=== PATIENT | male | born 1985 | race Caucasian/White ===

== ENCOUNTER 2017-04-28 15:19 | Outpatient (CLI) | payer OTHER ==
--- NOTE | 2017-04-29 08:40 | MRI Preliminary Report ---
Exam: MRI KNEE RT W/O IMPRESSION: 1. Near complete to complete rupture anterior cruciate ligament. 2. Radial tear through the substance posterior horn medial meniscus. 3. Bone contusions versus subacute subtle impaction fractures lateral femoral condyle and lateral tib ial plateau. 4. Small joint effusion. 5. Minimal popliteal cyst with leak. [facility] SECTION SITE ID: [id number]
--- NOTE | 2017-04-29 09:24 | MRI Report ---
EXAM: RIGHT KNEE MRI WITHOUT CONTRAST EXAM DATE: 04/28/2017 04:45 PM. CLINICAL HISTORY: Pain in right knee. COMPARISON: None. TECHNIQUE: Multiplanar, multisequence T1-weighted and fluid-sensitive sequences of the knee without c ontrast. Other: None. FINDINGS: Bones: No fracture. Benign bone island in the lateral femoral condyle. Subtle reactive edema at the m edial compartment. Subtle edema in the anterior aspect lateral femoral condyle and posterior aspect l ateral tibial plateau adjacent to the proximal tib-fib joint. Articular Cartilage: Focal deep partial to full-thickness fissure/tear weightbearing surface lateral femoral condyle. Shallow partial-thickness fissuring/tearing medial patellar facet. Medial Meniscus: Radial tear through the central substance of the posterior horn. Tearing extends int o the junction with the posterior root. Lateral Meniscus: The lateral meniscus is intact. Cruciate Ligaments: Diffuse distortion at the mid to distal fibers anterior cruciate ligament. A 1.5 cm ovoid focus of torn fibers present in the anterior aspect of the intercondylar notch. A few fibers of the posterior lateral band may remain intact. Posterior cruciate ligament is intact. Collateral Ligaments: The medial collateral and lateral collateral ligamentous structures are intact. Tendons: The quadriceps, patellar, semimembranosus, and popliteus tendons are unremarkable. Musculature: No edema or fatty atrophy. Other: Small joint effusion. Mild thickening of the medial plica. Minimal popliteal cyst with leak. N o loose bodies. The medial and lateral retinacula are intact. Subcutaneous soft tissues are unremarka ble. Minimal reactive edema in the fat pads. IMPRESSION: 1. Near complete to complete rupture anterior cruciate ligament. 2. Radial tear through the substance posterior horn medial meniscus. 3. Bone contusions versus subacute subtle impaction fractures lateral femoral condyle and lateral tib ial plateau. 4. Small joint effusion. 5. Minimal popliteal cyst with leak. [facility] SECTION Referring Provider Line: [phone] SITE ID: [id number]
== END 2017-04-28 15:20 | disposition home or self-care (01) ==
LOC: DI 15:19
PROVIDERS: ATTEND Orthopaedic Surgery
DX: S83.511A Sprain of anterior cruciate ligament of right knee, initial encounter (principal); S83.241A Other tear of medial meniscus, current injury, right knee, initial encounter; M25.461 Effusion, right knee; M71.21 Synovial cyst of popliteal space [Baker], right knee

== ENCOUNTER 2017-08-31 18:52 | Outpatient (CLI) | payer OTHER | END 2017-08-31 18:53 | disposition critical access hospital (66) | LOC: EMS 18:52 | PROVIDERS: ATTEND Surgery | DX: T20.19XA Burn of first degree of multiple sites of head, face, and neck, initial encounter (principal); X04.XXXA Exposure to ignition of highly flammable material, initial encounter; Y92.009 Unspecified place in unspecified non-institutional (private) residence as the place of occurrence of the external cause | CPT/HCPCS: A0425; A0429 ==

== ENCOUNTER 2017-08-31 19:39 | Emergency (ER) | payer OTHER ==
[2017-08-31] MEDS ORDERED: KETOROLAC 60 MG/2 ML VIAL IVP STA (19:55)
[2017-08-31] MEDS ORDERED: MORPHINE 10 MG/ML VIAL IVP STA (19:55)
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
[2017-08-31 20:30] VITALS: BP 119/77
== END 2017-08-31 20:39 | disposition home or self-care (01) ==
LOC: EDUNIT# → ED 19:39
DX: T22.119A Burn of first degree of unspecified forearm, initial encounter (principal); T20.19XA Burn of first degree of multiple sites of head, face, and neck, initial encounter; T31.0 Burns involving less than 10% of body surface; X08.8XXA Exposure to other specified smoke, fire and flames, initial encounter; R03.0 Elevated blood-pressure reading, without diagnosis of hypertension
CPT/HCPCS: 96374; 96375; 99283

== ENCOUNTER 2019-05-18 06:01 | Day surgery (SDC) | payer OTHER ==
[2019-05-18] MEDS ORDERED: LACTATED RINGERS 1,000 ML IV ONE (06:32)
[2019-05-18] MEDS ORDERED: ROPIVACAINE 0.5% PF 20 ML AMPULE ONE (07:02)
--- NOTE | 2019-05-18 07:06 | ANESTHESIA ---
Pre-Anesthesia VS, & Labs - Diagnosis right acl, meniscus tear - Procedure right acl, meniscus repair Vital Signs: Temp Pulse Resp BP Pulse Ox 36.3 C L 54 L 16 123/78 100 05/18/19 06:34 05/18/19 06:34 05/18/19 06:34 05/18/19 06:34 05/18/19 06:34 Height 5 ft 9 in Weight (kg) 67.9 kg Body Mass Index 22.3 Home Medications and Allergies Home Medications: Ambulatory Orders No Known Home Medications 05/10/19 No Known Home Medications 05/10/19 Allergies/Adverse Reactions: Allergies Allergy/AdvReac Type Severity Reaction Status Date / Time Penicillins Allergy Unknown Verified 05/18/19 06:42 Anes History & Medical History - Anesthetic History Anesthesia Complications: reports: No previous complications, Post-Operative Nausea/Vomiting (ponv 10 years ago.) Family history of Anesthesia Complications: Denies Family history of Malignant Hyperthermia: Denies - Medical History Cardiovascular: reports: None Pulmonary: reports: None Gastrointestinal: reports: None Urinary: reports: None Neuro: reports: None Musculoskeletal: reports: None, Other Endocrine/Autoimmune: reports: None Blood Disorders: reports: None Skin: reports: None Smoking Status: Former smoker Psychosocial: reports: No issues indicated - Surgical History Orthopedic: Other (clavicle repair 10 years ago.) Exam General: Alert, Oriented x3, Cooperative, No acute distress Dental: WNL Mouth Openin Fingerbreadth Neck Mobility: Normal Mallampati classification: II Thyromental Distance: 4-6 cm Respiratory: Lungs clear, Normal breath sounds, No respiratory distress, No accessory muscle use Cardiovascular: Regular rate, Normal S1, Normal S2, No murmurs Abdomen: Normal bowel sounds, Soft, No tenderness, No hepatospenomegaly, No masses Extremities: No clubbing, No cyanosis, No edema, Normal pulses, No tenderness/swelling Neurological: Normal gait, Normal speech, Strength at 5/5 X4 ext, Normal tone, Sensation intact, Cranial nerves 3-12 NL, Reflexes 2+ Mental/Cognitive Status: Alert/Oriented X3, Normal for patient Cognitive Status: Within normal limits Plan Anesthesia Type: General, Femoral Block Regional Block: Per Surgeon's request for Post Op pain control Consent for Procedure(s) Verified and Reviewed: Yes Code Status: Attempt Resuscitation ASA classification: 1-Healthy patient Is this case an emergency?: No
[2019-05-18] MEDS ORDERED: SCOPOLAMINE PATCH TOP ONE (07:08)
[2019-05-18] MEDS ORDERED: EPINEPHrine 1 MG/ML AMP ONE (07:18)
[2019-05-18] MEDS ORDERED: BUPIVACAINE 0.25% PF 30 ML VIAL ONE (07:18)
[2019-05-18] MEDS ORDERED: CEFAZOLIN SODIUM IN 0.9 % NACL 2 GM/100 ML BAG IV ONE (07:31)
[2019-05-18] MEDS ORDERED: PROPOFOL 200 MG/20 ML VIAL IVP ONE (07:47)
[2019-05-18] MEDS ORDERED: ePHEDrine 50 MG/ML VIAL IVP ONE (07:47)
[2019-05-18] MEDS ORDERED: GLYCOPYRROLATE 1 MG/5 ML VIAL IVP ONE (07:47)
[2019-05-18] MEDS ORDERED: ACETAMINOPHEN 1,000 MG/100 ML 100 ML IV ONE (07:47)
[2019-05-18] MEDS ORDERED: LIDOCAINE-MPF 2% 5 ML VIAL IM ONE (07:47)
[2019-05-18] MEDS ORDERED: fentaNYL 100 MCG/2 ML VIAL IVP ONE (07:47)
[2019-05-18] MEDS ORDERED: ONDANSETRON 4 MG/2 ML VIAL IVP ONE (07:47)
[2019-05-18] MEDS ORDERED: DEXAMETHASONE 4 MG/ML VIAL IVP ONE (07:47)
[2019-05-18] MEDS ORDERED: KETOROLAC 30 MG/ML VIAL IVP ONE (07:47)
[2019-05-18] MEDS ORDERED: MIDAZOLAM 2 MG/2 ML VIAL IVP ONE (07:47)
[2019-05-18] MEDS ORDERED: BUPIVACAINE 0.25% PF 30 ML VIAL SUBQ ONE ×2 (08:27)
[2019-05-18] MEDS ORDERED: EPINEPHrine 1 MG/ML AMP IR ONE (08:27)
[2019-05-18] MEDS ORDERED: ONDANSETRON 4 MG/2 ML VIAL IVP PRN (10:10)
[2019-05-18] MEDS ORDERED: oxyCODONE 5 MG TABLET PO PRN (10:10)
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
[2019-05-18] MEDS ORDERED: oxyCODONE 5 MG TABLET ONE (10:55)
[2019-05-18 11:26] VITALS: BP 120/78
== END 2019-05-18 06:02 | disposition home or self-care (01) ==
LOC: SDS 06:01
PROVIDERS: ATTEND Orthopaedic Surgery
PROC: 0LBN0ZZ Excision of Right Lower Leg Tendon, Open Approach (ICD-10-PCS; 2019-05-18)
PROC: 0SQC4ZZ Repair Right Knee Joint, Percutaneous Endoscopic Approach (ICD-10-PCS; 2019-05-18)
PROC: 0MRN47Z Replacement of Right Knee Bursa and Ligament with Autologous Tissue Substitute, Percutaneous Endoscopic Approach (ICD-10-PCS; principal; 2019-05-18 07:30)
DX: S83.511A Sprain of anterior cruciate ligament of right knee, initial encounter (principal); S83.241A Other tear of medial meniscus, current injury, right knee, initial encounter; Z87.891 Personal history of nicotine dependence

== ENCOUNTER 2019-06-19 15:21 | Emergency (ER) | payer OTHER ==
[2019-06-19 15:46] VITALS: BP 113/66
== END 2019-06-19 16:37 | disposition left against medical advice (07) ==
LOC: ED 15:21
DX: Z53.21 Procedure and treatment not carried out due to patient leaving prior to being seen by health care provider (principal)

== ENCOUNTER 2019-06-20 07:03 | Emergency (ER) | payer OTHER ==
--- NOTE | 2019-06-20 08:36 | ED Physician Documentation ---
PD HPI SKIN - Stated complaint Stated Complaint: INCISION CHECK - Chief complaint Chief Complaint: Wound - History obtained from History obtained from: Patient - History of Present Illness Timing - onset: How many days ago (10) Timing - duration: Days (10) Timing - details: Gradual onset, Still present Location: RLE Quality / character: Discolored, Raised Associated symptoms: No: Fever, Myalgias, Joint pain, Headache, Facial swelling, Dyspnea, Abd pain, N/V/D, Urinary sx Similar symptoms before: Has not had sx before Recently seen: Surgery - Additional information Additional information: 34-year-old male who has had an ACL repair done about 4 weeks ago has been in physical therapy and is doing well his knee is doing well he is got a little area at the IT band insertion where he has some erythema and a suture granuloma. This has been followed over the past 10 days now he is starting to get some increased redness around the area. He did have some drainage from it last week and he does not have any specific tenderness or drainage now. The redness has not extended more than a few millimeters from the area. He was asked by his physical therapist to come to the emergency department for evaluation as it looks like the area is mildly infected. Review of Systems Constitutional: denies: Fever, Chills Ears: denies: Ear pain Nose: denies: Congestion Throat: denies: Sore throat Cardiac: denies: Chest pain / pressure Respiratory: denies: Dyspnea, Cough GI: denies: Vomiting PD PAST MEDICAL HISTORY - Past Medical History Past Medical History: No Cardiovascular: None Respiratory: None Neuro: None Endocrine/Autoimmune: None GI: None : None HEENT: None Psych: None Musculoskeletal: None, Other Derm: None - Past Surgical History Ortho: Other - Present Medications Home Medications: Ambulatory Orders Medication Instructions Recorded Confirmed Sulfamethoxazole/Trimethoprim 1 each PO BID #14 tablet 06/20/19 [Sulfamethoxazole-Tmp Ds Tablet] - Allergies Allergies/Adverse Reactions: Allergies Allergy/AdvReac Type Severity Reaction Status Date / Time Penicillins Allergy Unknown Verified 06/20/19 07:21 - Social History Does the pt smoke?: No Smoking Status: Never smoker Does the pt drink ETOH?: Yes Does the pt have substance abuse?: No PD ED PE NORMAL - Vitals Vital signs reviewed: Yes (Normal) - General General: Alert and oriented X 3, No acute distress, Well developed/nourished - HEENT HEENT: Atraumatic, PERRL, EOMI - Respiratory Respiratory: No respiratory distress - Derm Derm: Normal color, Warm and dry, No rash - Extremities Extremities: No deformity, No edema, No calf tenderness / cord, Other (On the right knee laterally there is an area of erythema and eschar and I do not see any suture from this as well which was what was described 10 days ago. This looks like a possible suture granuloma with a superficial infection. There is no deep tenderness there is no fluctuance there is no evidence of abscess. ) - Neuro Neuro: Alert and oriented X 3, coat baster 2-12 intact, No motor deficit, No sensory deficit, Normal speech Eye Opening: Spontaneous Motor: Obeys Commands Verbal: Oriented GCS Score: 15 Results - Vitals Vitals: Vital Signs - 24 hr 06/20/19 06/20/19 07:10 08:51 Temperature 36.7 C 37 C Heart Rate 77 64 Respiratory 16 18 Rate Blood Pressure 118/69 117/76 O2 Saturation 100 100 Oxygen O2 Source Room air PD MEDICAL DECISION MAKING - ED course Complexity details: considered differential, d/w patient ED course: 34-year-old male with a area on his right knee that appears to be a suture reaction has the appearance of superficial skin infection. He is instructed to use a warm compress twice a day and we will place him on a short course of Septra. Departure - Departure Disposition: 01 Home, Self Care Clinical Impression: Skin infection of right knee Suture granuloma Qualifiers: Encounter type: initial encounter Qualified Code(s): T81.89XA - Other complications of procedures, not elsewhere classified, initial encounter Condition: Stable Instructions: ED Staph Infec Abx Tx Only Follow-Up: [facility] [Provider Group] Prescriptions: Sulfamethoxazole/Trimethoprim [Sulfamethoxazole-Tmp Ds Tablet] 1 each PO BID #14 tablet Discharge Date/Time: 06/20/19 08:55
[2019-06-20 08:52] VITALS: BP 117/76
== END 2019-06-20 08:55 | disposition home or self-care (01) ==
LOC: ED 07:03
DX: L08.9 Local infection of the skin and subcutaneous tissue, unspecified (principal); T81.89XA Other complications of procedures, not elsewhere classified, initial encounter
CPT/HCPCS: 99282; 99284